=== PATIENT | male | born 1940 | race American Indian/Alaskan Native ===

== ENCOUNTER 2021-10-24 18:21 | Inpatient (IN) | payer MEDICARE ==
[2021-10-24] MEDS ORDERED: SODIUM CHLORIDE 0.9% 500 ML 500 ML IV ONE (19:32)
--- NOTE | 2021-10-24 19:45 | Emergency Department Report ---
ED Syncope HPI - General Chief Complaint: Syncope Stated Complaint: SYNCOPE Time Seen by Provider: 10/24/21 19:26 Source: patient Exam Limitations: other (Dementia) - History of Present Illness Initial Comments: 81-year-old female with early dementia hypertension presents to the hospital after a syncopal episode while walking around with family members in [facility]. Her family members caught the patient during her fall and she did not strike the ground. Patient is visiting the [place] area from [facility]. She is oriented to self, date of , but does not know the year, and initially stated she was in [facility] during initial questioning. Patient cannot r ecall if she came to [place] yesterday or today. She does state for the last 2 weeks she has had poor p.o. intake due to decreased appetite and has been supplementing her diet with boost. She only had 1 boost earlier today but denies other food intake. She states she feels much better now. She denies headache, chest pain, shortness of breath, abdominal pain, nausea, vomiting, melena or hematochezia , dysuria, focal weakness, or focal numbness. - Related Data Allergies/Adverse Reactions: Allergies No Known Allergies Allergy (Unverified 10/24/21 18:28) ED Review of Systems ROS: Stated complaint: SYNCOPE Other details as noted in HPI Comment: All other systems reviewed and negative ED Past Medical Hx - Past Medical History Hx Hypertension: Yes - Social History Smoking Status: Unknown if ever smoked ED Physical Exam - General Limitations: No Limitations - Other Other exam information: General: No acute distress Head: Atraumatic Eyes: normal appearance ENT: Moist mucous membranes Neck: Normal appearance, no midline tenderness Chest: Clear to auscultation bilaterally CV: Regular rate and rhythm Abdomen: Soft, normal bowel sounds, nontender, nondistended, no rebound or guarding Back: Normal inspection Extremity: Normal inspection, full range of motion, no calf tenderness, leg edema, or leg asymmetry Neuro: Alert O x to self but states month is January, unsure of year, and states she is in [facility] no facial asymmetry, speech clear, no gross motor sensory deficit, [id number] function intact, extraocular movements intact Psych: Appropriate behavior Skin: No rash ED Course Vital Signs 10/24/21 10/24/21 10/24/21 18:26 19:30 19:46 Temperature 97.3 F L Pulse Rate 68 58 L Pulse Rate [ Lying] Pulse Rate [ Sitting] Pulse Rate [ Standing] Respiratory 18 14 17 Rate Blood Pressure 137/55 Blood Pressure 116/56 [Left] Blood Pressure [Lying] Blood Pressure [Sitting] Blood Pressure [Standing] O2 Sat by Pulse 100 100 98 Oximetry 10/24/21 10/24/21 10/24/21 20:00 20:15 20:30 Temperature Pulse Rate 63 62 64 Pulse Rate [ Lying] Pulse Rate [ Sitting] Pulse Rate [ Standing] Respiratory 10 L 16 17 Rate Blood Pressure 137/55 140/64 140/64 Blood Pressure [Left] Blood Pressure [Lying] Blood Pressure [Sitting] Blood Pressure [Standing] O2 Sat by Pulse 97 98 98 Oximetry 10/24/21 10/24/21 10/24/21 20:46 21:00 21:16 Temperature Pulse Rate 64 67 64 Pulse Rate [ Lying] Pulse Rate [ Sitting] Pulse Rate [ Standing] Respiratory 17 18 19 Rate Blood Pressure 144/59 144/59 122/47 Blood Pressure [Left] Blood Pressure [Lying] Blood Pressure [Sitting] Blood Pressure [Standing] O2 Sat by Pulse 99 98 98 Oximetry 10/24/21 10/24/21 10/24/21 21:25 21:30 21:46 Temperature Pulse Rate 64 64 Pulse Rate [ 63 Lying] Pulse Rate [ 65 Sitting] Pulse Rate [ 68 Standing] Respiratory 17 13 Rate Blood Pressure 101/44 137/66 Blood Pressure [Left] Blood Pressure 155/59 [Lying] Blood Pressure 148/69 [Sitting] Blood Pressure 101/44 [Standing] O2 Sat by Pulse 99 100 Oximetry 10/24/21 10/24/21 22:00 22:14 Temperature Pulse Rate 68 Pulse Rate [ Lying] Pulse Rate [ Sitting] Pulse Rate [ Standing] Respiratory 9 L Rate Blood Pressure 137/66 Blood Pressure [Left] Blood Pressure [Lying] Blood Pressure [Sitting] Blood Pressure [Standing] O2 Sat by Pulse 98 98 Oximetry ED Medical Decision Making - Lab Data Result diagrams: 10/24/21 20:00 10/24/21 20:00 Lab Results 10/24/21 10/24/21 10/24/21 Range/Units 20:00 20:00 20:00 WBC 7.9 (4.5-11.0) K/mm3 RBC 4.21 (3.65-5.03) M/mm3 Hgb 12.3 (11.8-15.2) gm/dl Hct 37.5 (35.5-45.6) % MCV 89 (84-94) fl MCH 29 (28-32) pg MCHC 33 (32-34) % RDW 15.0 (13.2-15.2) % Plt Count 248 (140-440) K/mm3 Lymph % (Auto) 18.3 (13.4-35.0) % [place]urt % (Auto) 13.4 H (0.0-7.3) % Eos % (Auto) 0.9 (0.0-4.3) % Baso % (Auto) 0.4 (0.0-1.8) % Lymph # (Auto) 1.4 (1.2-5.4) K/mm3 [place] # (Auto) 1.1 H (0.0-0.8) K/mm3 Eos # (Auto) 0.1 (0.0-0.4) K/mm3 Baso # (Auto) 0.0 (0.0-0.1) K/mm3 Seg Neutrophils % 67.0 (40.0-70.0) % Seg Neutrophils # 5.3 (1.8-7.7) K/mm3 PT 14.6 (12.2-14.9) Sec. INR 1.03 (0.87-1.13) APTT 30.2 (24.2-36.6) Sec. Sodium 138 (137-145) mmol/L Potassium 3.9 (3.6-5.0) mmol/L Chloride 100.0 (98-107) mmol/L Carbon Dioxide 25 (22-30) mmol/L Anion Gap 17 mmol/L BUN 25 H (9-20) mg/dL Creatinine 0.9 (0.8-1.3) mg/dL Estimated GFR > 60 ml/min BUN/Creatinine Ratio 28 % Glucose 96 (75-100) mg/dL Calcium 9.3 (8.4-10.2) mg/dL Magnesium 2.10 (1.7-2.3) mg/dL Total Bilirubin 0.30 (0.1-1.2) mg/dL AST 22 (5-40) units/L ALT 13 (7-56) units/L Alkaline Phosphatase 112 (35-129) units/L Total Creatine Kinase 60 (55-170) units/L CK-MB (CK-2) < 1.0 (0.0-4.0) ng/mL CK-MB (CK-2) Rel Index 1.6 (0-4) Troponin T < 0.010 (0.00-0.029) ng/mL Total Protein 7.6 (6.3-8.2) g/dL Albumin 3.6 L (3.9-5) g/dL Albumin/Globulin Ratio 0.9 % Urine Color (Yellow) Urine Turbidity (Clear) Urine pH (5.0-7.0) Ur Specific [place] (1.003-1.030) Urine Protein (Negative) mg/dL Urine Glucose (UA) (Negative) mg/dL Urine Ketones (Negative) mg/dL Urine Blood (Negative) Urine Nitrite (Negative) Ur Reducing Substances Urine Bilirubin (Negative) Urine Ictotest Urine Urobilinogen (<2.0) mg/dL Ur Leukocyte Esterase (Negative) Urine WBC (Auto) (0.0-6.0) /HPF Urine RBC (Auto) (0.0-6.0) /HPF U Epithel Cells (Auto) (0-13.0) /HPF Urine Bacteria (Auto) (Negative) /HPF Urine Mucus /HPF 10/24/21 Range/Units 20:34 WBC (4.5-11.0) K/mm3 RBC (3.65-5.03) M/mm3 Hgb (11.8-15.2) gm/dl Hct (35.5-45.6) % MCV (84-94) fl MCH (28-32) pg MCHC (32-34) % RDW (13.2-15.2) % Plt Count (140-440) K/mm3 Lymph % (Auto) (13.4-35.0) % Burt % (Auto) (0.0-7.3) % Eos % (Auto) (0.0-4.3) % Baso % (Auto) (0.0-1.8) % Lymph # (Auto) (1.2-5.4) K/mm3 [place]urt # (Auto) (0.0-0.8) K/mm3 Eos # (Auto) (0.0-0.4) K/mm3 Baso # (Auto) (0.0-0.1) K/mm3 Seg Neutrophils % (40.0-70.0) % Seg Neutrophils # (1.8-7.7) K/mm3 PT (12.2-14.9) Sec. INR (0.87-1.13) APTT (24.2-36.6) Sec. Sodium (137-145) mmol/L Potassium (3.6-5.0) mmol/L Chloride (98-107) mmol/L Carbon Dioxide (22-30) mmol/L Anion Gap mmol/L BUN (9-20) mg/dL Creatinine (0.8-1.3) mg/dL Estimated GFR ml/min BUN/Creatinine Ratio % Glucose (75-100) mg/dL Calcium (8.4-10.2) mg/dL Magnesium (1.7-2.3) mg/dL Total Bilirubin (0.1-1.2) mg/dL AST (5-40) units/L ALT (7-56) units/L Alkaline Phosphatase (35-129) units/L Total Creatine Kinase (55-170) units/L CK-MB (CK-2) (0.0-4.0) ng/mL CK-MB (CK-2) Rel Index (0-4) Troponin T (0.00-0.029) ng/mL Total Protein (6.3-8.2) g/dL Albumin (3.9-5) g/dL Albumin/Globulin Ratio % Urine Color Yellow (Yellow) Urine Turbidity Slightly cloudy (Clear) Urine pH 6.0 (5.0-7.0) Ur Specific [place] 1.025 (1.003-1.030) Urine Protein 30 mg/dl (Negative) mg/dL Urine Glucose (UA) Negative (Negative) mg/dL Urine Ketones Negative (Negative) mg/dL Urine Blood Small A (Negative) Urine Nitrite Negative (Negative) Ur Reducing Substances Not Reportable Urine Bilirubin Negative (Negative) Urine Ictotest Not Reportable Urine Urobilinogen 2.0 (<2.0) mg/dL Ur Leukocyte Esterase Small (Negative) Urine WBC (Auto) 19.0 H (0.0-6.0) /HPF Urine RBC (Auto) 10.0 (0.0-6.0) /HPF U Epithel Cells (Auto) 4.0 (0-13.0) /HPF Urine Bacteria (Auto) 4+ (Negative) /HPF Urine Mucus Few /HPF - EKG Data -: EKG Interpreted by Me EKG shows normal: sinus rhythm, ST-T waves (No STEMI) Rate: normal - EKG Data When compared to previous EKG there are: previous EKG unavailable - Radiology Data Radiology results: report reviewed CHEST 1 VIEW 10/24/2021 7:47 PM INDICATION / CLINICAL INFORMATION: Syncope. COMPARISON: None available. FINDINGS: SUPPORT DEVICES: None. HEART / MEDIASTINUM: Heart is mildly enlarged. LUNGS / PLEURA: No significant pulmonary or pleural abnormality. No pneumothorax. ADDITIONAL FINDINGS: No significant additional findings. IMPRESSION: 1. Mild cardiomegaly but no acute pulmonary or pleural findings. - Medical Decision Making 81-year-old female with a past medical history of hypertension and mild dementia presents to the hospital after syncopal episode. Patient admits to poor p.o. intake and decreased appetite. Labs reveal increased BUN to creatinine ratio suggesting dehydration. Patient also has a UTI which could be The cause of her decreased p.o. intake. Patient does not have any pain. Nonfocal neuro exam. EKG, troponin, chest x-ray are unremarkable. IV hydration and IV Rocephin initiated in the ED. Cultures pending. Patient will be admitted to the hospitalist service for further treatment Critical Care Time: No Critical care attestation.: If time is entered above; I have spent that time in minutes in the direct care of this critically ill patient, excluding procedure time. ED Disposition Clinical Impression: Syncope, Dehydration, UTI (urinary tract infection), Mild dementia Disposition: ADMITTED INPATIENT Is pt being admited?: Yes Condition: Stable Instructions: Syncope (ED) Time of Disposition: 22:28
--- NOTE | 2021-10-24 20:22 | XRay Report ---
CHEST 1 VIEW 10/24/2021 7:47 PM INDICATION / CLINICAL INFORMATION: Syncope. COMPARISON: None available. FINDINGS: SUPPORT DEVICES: None. HEART / MEDIASTINUM: Heart is mildly enlarged. LUNGS / PLEURA: No significant pulmonary or pleural abnormality. No pneumothorax. ADDITIONAL FINDINGS: No significant additional findings. IMPRESSION: 1. Mild cardiomegaly but no acute pulmonary or pleural findings. Signer Name: Anita Ball MD Signed: 10/24/2021 8:17 PM Workstation Name: [id number]
[2021-10-24 20:26] LABS: Basophils % (Auto) 0.4 % (0.0-1.8); Eosinophils # (Auto) 0.1 K/mm3 (0.0-0.4); Eosinophils % (Auto) 0.9 % (0.0-4.3); Hematocrit 37.5 % (35.5-45.6); Hemoglobin 12.3 gm/dl (11.8-15.2); Lymphocytes # (Auto) 1.4 K/mm3 (1.2-5.4); Lymphocytes % (Auto) 18.3 % (13.4-35.0); Mean Corpuscular HGB Conc 33 % (32-34); Mean Corpuscular Volume 89 fl (84-94); Monocytes # (Auto) 1.1 K/mm3 (0.0-0.8); Monocytes % (Auto) 13.4 % (0.0-7.3); Platelet Count 248 K/mm3 (140-440); Red Blood Count 4.21 M/mm3 (3.65-5.03)
[2021-10-24 20:32] LABS: INR 1.03 (0.87-1.13); Partial Thromboplastin Time 30.2 Sec. (24.2-36.6)
[2021-10-24 20:44] LABS: Alanine Aminotransferase 13 units/L (7-56); Albumin 3.6 g/dL (3.9-5); BUN/Creatinine Ratio 28; Blood Urea Nitrogen 25 mg/dL (9-20); Calcium 9.3 mg/dL (8.4-10.2); Hemolysis Index 3
[2021-10-24 20:47] LABS: Creatine Kinase MB < 1.0 ng/mL (0.0-4.0)
[2021-10-24 21:54] LABS: Bacteria,Urine 4+ /HPF (Negative); Mucus,Urine FEW /HPF
[2021-10-24 22:08] LABS: Bilirubin,Urine Negative (Negative); Color,Urine Yellow (Yellow)
[2021-10-24 22:09] LABS: Blood,Urine Small (Negative)
[2021-10-24] MEDS ORDERED: cefTRIAXone/NS 1 GM/50 ML 1 GM/50 ML BAG IV ONE (22:24)
[2021-10-24] MEDS ORDERED: SODIUM CHLORIDE 0.9% 1000 ML 1,000 ML IV ONE (22:25)
[2021-10-24] MEDS ORDERED: NITROGLYCERIN 0.4 MG TAB SUBL SL PRN (22:39)
[2021-10-24] MEDS ORDERED: traMADol 50 MG TAB PO PRN (22:39)
[2021-10-24] MEDS ORDERED: ACETAMINOPHEN 325 MG TAB PO PRN (22:39)
[2021-10-24] MEDS ORDERED: MORPHINE 4 MG/1 ML INJ IV PRN (22:39)
--- NOTE | 2021-10-24 22:46 | History and Physical Report ---
History of Present Illness Date of examination: 10/24/21 Date of admission: 10/24/21 Chief complaint: Syncope History of present illness: 81-year-old female with early dementia hypertension presents to the hospital after a syncopal episode while walking around with family members in [facility]. Her family members caught the patient during her fall and she did not strike the ground. Patient is visiting the [place] area from [facility]. She is oriented to self, date of , but does not know the year, and initially stated she was in [facility] during initial questioning. Patient cannot recall if she came to [place] yesterday or today. She does state for the last 2 weeks she has had poor p.o. intake due to decreased appetite and has been supplementing her diet with boost. She only had 1 boost earlier today but denies other food intake. She states she feels much better now. She denies headache, chest pain, shortness of breath, abdominal pain, nausea, vomiting, melena or hematochezia , dysuria, focal weakness, or focal numbness. In the emergency room patient's initial troponin is negative troponin is 0.010, chest x-ray shows no acute finding, but patient is found to have a UTI Past History Past Medical History: hypertension Past Surgical History: No surgical history Social history: no significant social history Family history: hypertension Medications and Allergies Allergies Allergy/AdvReac Type Severity Reaction Status Date / Time No Known Allergies Allergy Unverified 10/24/21 18:28 Active Meds: Active Medications Ceftriaxone Sodium (Rocephin/Ns 1 Gm/50 Ml) 1 gm in 50 mls @ 100 mls/hr IV ONCE ONE; Protocol Stop: 10/24/21 22:53 Sodium Chloride (Nacl 0.9% 1000 Ml) 1,000 mls @ 250 mls/hr IV BOLUS ONE Stop: 10/25/21 02:24 Review of Systems All systems: negative Constitutional: weakness, other Cardiovascular: syncope, lightheadedness Exam - Constitutional Vitals: Temp Pulse Resp BP Pulse Ox 97.3 F L 66 16 136/59 100 10/24/21 18:26 10/24/21 22:30 10/24/21 22:30 10/24/21 22:30 10/24/21 22:30 General appearance: Present: no acute distress, well-nourished - EENT Eyes: Present: PERRL ENT: hearing intact, clear oral mucosa - Neck Neck: Present: supple, normal ROM - Respiratory Respiratory effort: normal Respiratory: bilateral: CTA - Cardiovascular Heart Sounds: Present: S1 & S2. Absent: rub, click - Extremities Extremities: pulses symmetrical, No edema Peripheral Pulses: within normal limits - Abdominal General gastrointestinal: Present: soft, non-tender, non-distended, normal bowel sounds Male genitourinary: Present: normal - Integumentary Integumentary: Present: clear, warm, dry - Musculoskeletal Musculoskeletal: gait normal, strength equal bilaterally - Psychiatric Psychiatric: appropriate mood/affect, intact judgment & insight - Neurologic Neurologic: CNII-XII intact, moves all extremities HEART Score - HEART Score Troponin: Troponin T < 0.010 ng/mL (0.00-0.029) 10/24/21 20:00 Results - Labs CBC & Chem 7: 10/24/21 20:00 10/24/21 20:00 Labs: Laboratory Last Values WBC 7.9 K/mm3 (4.5-11.0) 10/24/21 20:00 RBC 4.21 M/mm3 (3.65-5.03) 10/24/21 20:00 Hgb 12.3 gm/dl (11.8-15.2) 10/24/21 20:00 Hct 37.5 % (35.5-45.6) 10/24/21 20:00 MCV 89 fl (84-94) 10/24/21 20:00 MCH 29 pg (28-32) 10/24/21 20:00 MCHC 33 % (32-34) 10/24/21 20:00 RDW 15.0 % (13.2-15.2) 10/24/21 20:00 Plt Count 248 K/mm3 (140-440) 10/24/21 20:00 Lymph % (Auto) 18.3 % (13.4-35.0) 10/24/21 20:00 [place] % (Auto) 13.4 % (0.0-7.3) H 10/24/21 20:00 Eos % (Auto) 0.9 % (0.0-4.3) 10/24/21 20:00 Baso % (Auto) 0.4 % (0.0-1.8) 10/24/21 20:00 Lymph # (Auto) 1.4 K/mm3 (1.2-5.4) 10/24/21 20:00 [place] # (Auto) 1.1 K/mm3 (0.0-0.8) H 10/24/21 20:00 Eos # (Auto) 0.1 K/mm3 (0.0-0.4) 10/24/21 20:00 Baso # (Auto) 0.0 K/mm3 (0.0-0.1) 10/24/21 20:00 Seg Neutrophils % 67.0 % (40.0-70.0) 10/24/21 20:00 Seg Neutrophils # 5.3 K/mm3 (1.8-7.7) 10/24/21 20:00 PT 14.6 Sec. (12.2-14.9) 10/24/21 20:00 INR 1.03 (0.87-1.13) 10/24/21 20:00 APTT 30.2 Sec. (24.2-36.6) 10/24/21 20:00 Sodium 138 mmol/L (137-145) 10/24/21 20:00 Potassium 3.9 mmol/L (3.6-5.0) 10/24/21 20:00 Chloride 100.0 mmol/L (98-107) 10/24/21 20:00 Carbon Dioxide 25 mmol/L (22-30) 10/24/21 20:00 Anion Gap 17 mmol/L 10/24/21 20:00 BUN 25 mg/dL (9-20) H 10/24/21 20:00 Creatinine 0.9 mg/dL (0.8-1.3) 10/24/21 20:00 Estimated GFR > 60 ml/min 10/24/21 20:00 BUN/Creatinine Ratio 28 % 10/24/21 20:00 Glucose 96 mg/dL (75-100) 10/24/21 20:00 Calcium 9.3 mg/dL (8.4-10.2) 10/24/21 20:00 Magnesium 2.10 mg/dL (1.7-2.3) 10/24/21 20:00 Total Bilirubin 0.30 mg/dL (0.1-1.2) 10/24/21 20:00 AST 22 units/L (5-40) 10/24/21 20:00 ALT 13 units/L (7-56) 10/24/21 20:00 Alkaline Phosphatase 112 units/L (35-129) 10/24/21 20:00 Total Creatine Kinase 60 units/L (55-170) 10/24/21 20:00 CK-MB (CK-2) < 1.0 ng/mL (0.0-4.0) 10/24/21 20: CK-MB (CK-2) Rel Index 1.6 (0-4) 10/24/21 20:00 Troponin T < 0.010 ng/mL (0.00-0.029) 10/24/21 20:00 Total Protein 7.6 g/dL (6.3-8.2) 10/24/21 20:00 Albumin 3.6 g/dL (3.9-5) L 10/24/21 20: Albumin/Globulin Ratio 0.9 % 10/24/21 20: Urine Color Yellow (Yellow) 10/24/21 20:34 Urine Turbidity Slightly cloudy (Clear) 10/24/21 20:34 Urine pH 6.0 (5.0-7.0) 10/24/21 20:34 Ur Specific [place] 1.025 (1.003-1.030) 10/24/21:34 Urine Protein 30 mg/dl mg/dL (Negative) 10/24/21 20:34 Urine Glucose (UA) Negative mg/dL (Negative) 10/24/21 20:34 Urine Ketones Negative mg/dL (Negative) 10/24/21: Urine Blood Small (Negative) A 10/24/21 20:34 Urine Nitrite Negative (Negative) 10/24/21 20:34 Ur Reducing Substances Not Reportable 10/24/21 20: Urine Bilirubin Negative (Negative) 10/24/21: Urine Ictotest Not Reportable 10/24/21: Urine Urobilinogen 2.0 mg/dL (<2.0) 10/24/21 20:34 Ur Leukocyte Esterase Small (Negative) 10/24/21 20:34 Urine WBC (Auto) 19.0 /HPF (0.0-6.0) H 10/24/21:34 Urine RBC (Auto) 10.0 /HPF (0.0-6.0) 10/24/21 20:34 U Epithel Cells (Auto) 4.0 /HPF (0-13.0) 10/24/21 20:34 Urine Bacteria (Auto) 4+ /HPF (Negative) 10/24/21 20:34 Urine Mucus Few /HPF 10/24/21 20:34 - Imaging and Cardiology Chest x-ray: report reviewed Assessment and Plan VTE prophylaxis?: Mechanical Plan of care discussed with patient/family: Yes - Patient Problems (1) Syncope Current Visit: Yes Status: Acute Plan to address problem: Admit the patient to the medical telemetry. Aspirin 325 mg p.o. daily. Lipitor 40 mg p.o. daily. Nitroglycerin as needed. Half-normal saline at the rate of 100 cc/h. Serial cardiac enzymes. Echocardiogram. Consult cardiology if needed (2) Hypertension Current Visit: Yes Status: Acute Plan to address problem: Hydralazine 10 mg IV every 6 hours as needed. We continue the home medication (3) Dehydration Current Visit: Yes Status: Acute Plan to address problem: Half-normal saline at the rate of 100 cc/h. We dehydrate the patient slowly. Recheck BMP in the morning (4) Mild dementia Current Visit: Yes Status: Acute Plan to address problem: Is stable. We continue the home medication (5) UTI (urinary tract infection) Current Visit: Yes Status: Acute Plan to address problem: Rocephin 2 g IV daily. We sent the blood and urine for culture (6) DVT prophylaxis Current Visit: Yes Status: Acute Plan to address problem: SCD for DVT prophylaxis. Protonix 40 mg p.o. daily for GI prophylaxis. Patient is a full code
[2021-10-24] MEDS ORDERED: cefTRIAXone/NS 2 GM/100 ML 2 GM/100 ML BAG IV SCH (23:00)
[2021-10-24] MEDS ORDERED: SODIUM CHLORIDE 0.45% 1000 ML 1,000 ML IV SCH (23:00)
[2021-10-24 23:26] LABS: Basophils % (Auto) 0.2 % (0.0-1.8); Eosinophils # (Auto) 0.1 K/mm3 (0.0-0.4); Eosinophils % (Auto) 0.7 % (0.0-4.3); Hematocrit 36.2 % (35.5-45.6); Hemoglobin 11.9 gm/dl (11.8-15.2); Lymphocytes # (Auto) 1.9 K/mm3 (1.2-5.4); Lymphocytes % (Auto) 23.9 % (13.4-35.0); Mean Corpuscular HGB Conc 33 % (32-34); Mean Corpuscular Volume 89 fl (84-94); Monocytes % (Auto) 12.1 % (0.0-7.3); Platelet Count 243 K/mm3 (140-440); Red Blood Count 4.06 M/mm3 (3.65-5.03); Red Cell Distribution Width 15.3 % (13.2-15.2)
[2021-10-24 23:38] LABS: Blood Urea Nitrogen 21 mg/dL (9-20); Hemolysis Index 3
[2021-10-24 23:52] LABS: BUN/Creatinine Ratio 30
[2021-10-25 05:00] VITALS: BP 138/54
[2021-10-25 09:40] LABS: Mucus,Urine FEW /HPF
[2021-10-25] MEDS ORDERED: ASPIRIN EC 325 MG TAB PO SCH (10:00)
[2021-10-25] MEDS ORDERED: PANTOPRAZOLE 40 MG TAB PO SCH (10:00)
[2021-10-25] MEDS ORDERED: cefTRIAXone/NS 2 GM/100 ML 2 GM/100 ML BAG IV SCH (10:00)
[2021-10-25 10:06] LABS: Bilirubin,Urine Negative (Negative); Blood,Urine 2+ (Negative); Color,Urine Straw (Yellow); PH,Urine 7.5 (5.0-7.0)
--- NOTE | 2021-10-25 10:10 | Discharge Summary ---
Providers - Providers Date of Admission: 10/24/21 22:40 Attending physician: BHAVNA STEVE MD 10/24/21 Consult to Cardiac Rehabilitation [CONS] Routine Reason For Exam: Phase I Primary care physician: FLORESITA SANDOVAL Hospitalization Reason for admission: syncope Condition: Stable Hospital course: 81-year-old female with early dementia hypertension presents to the hospital after a syncopal episode while walking around with family members in [facility]. Her family members caught the patient during her fall and she did not strike the ground. Patient is visiting the [place] area from [facility]. She is oriented to self, date of , but does not know the year, and initially stated she was in [facility] during initial questioning. Patient cannot recall if she came to [place] yesterday or today. She does state for the last 2 weeks she has had poor p.o. intake due to decreased appetite and has been supplementing her diet with boost. She only had 1 boost earlier today but denies other food intake. She states she feels much better now. She denies headache, chest pain, shortness of breath, abdominal pain, nausea, vomiting, melena or hematochezia , dysuria, focal weakness, or focal numbness. In the emergency room patient's initial troponin is negative troponin is 0.010, chest x-ray shows no acute finding, but patient is found to have a UTI 10/25: Patient seen and examined, some owning noted. Spoke to family, they are aware that patients has been experiencing forgetfulness for some time but has not been worked up. Will get a echo, CT head and if negative will discharge. She is encouraged to increase PO intake, also will give antibiotics for the noted UTI (1) Autonomic Disequilibrium Current Visit: Yes Status: Acute Plan to address problem: Admit the patient to the medical telemetry. Aspirin 325 mg p.o. daily. Lipitor 40 mg p.o. daily. Nitroglycerin as needed. Half-normal saline at the rate of 100 cc/h. Serial cardiac enzymes. Echocardiogram. Consult cardiology if needed (2) Hypertension Current Visit: Yes Status: Acute Plan to address problem: Hydralazine 10 mg IV every 6 hours as needed. We continue the home medication (3) Dehydration Current Visit: Yes Status: Acute Plan to address problem: Half-normal saline at the rate of 100 cc/h. We dehydrate the patient slowly. Recheck BMP in the morning (4) Mild dementia Current Visit: Yes Status: Acute Plan to address problem: Is stable. We continue the home medication (5) Acute Metabolic Encephalopathy (6) Acute cystitis Current Visit: Yes Status: Acute Plan to address problem: Rocephin 2 g IV daily. We sent the blood and urine for culture (7) Possible New onset dementia Disposition: 01 HOME / SELF CARE / HOMELESS Final Discharge Diagnosis (Prints w/discharge instructions): Autonomic Disequibirum. Acute cystitis. Acute Metabolic Encephalopathy Time spent for discharge: 35 mins Core Measure Documentation - Palliative Care Palliative Care/ Comfort Measures: Not Applicable - Core Measures Any of the following diagnoses?: none Exam - Physical Exam Narrative exam: General appearance: Present: no acute distress, well-nourished - EENT Eyes: Present: PERRL ENT: hearing intact, clear oral mucosa - Neck Neck: Present: supple, normal ROM - Respiratory Respiratory effort: normal Respiratory: bilateral: CTA - Cardiovascular Heart Sounds: Present: S1 & S2. Absent: rub, click - Extremities Extremities: pulses symmetrical, No edema Peripheral Pulses: within normal limits - Abdominal General gastrointestinal: Present: soft, non-tender, non-distended, normal bowel sounds Male genitourinary: Present: normal - Integumentary Integumentary: Present: clear, warm, dry - Musculoskeletal Musculoskeletal: gait normal, strength equal bilaterally - Psychiatric Psychiatric: appropriate mood/affect, intact judgment & insight - Neurologic Neurologic: CNII-XII intact, moves all extremities, intermittent forgetfulness - Constitutional Vitals: Temp Pulse Resp BP Pulse Ox 97.8 F 58 L 16 138/54 98 10/25/21 03:56 10/25/21 03:56 10/25/21 03:56 10/25/21 03:56 10/25/21 03:56 Plan Activity: advance as tolerated, fall precautions Diet: low fat Special Instructions: record daily weights, record daily BP diary Plan of Treatment: STRONGLY ENCOURAGE OUTPATIENT NEUROLOGY AND CARDIOLOGY WORK UP Follow up with: FLORESITA SANDOVAL MD [Primary Care Provider] - 3-5 Days Prescriptions: AtorvaSTATin [Lipitor] 40 mg PO QHS #30 tablet Ciprofloxacin HCl 500 mg PO BID #6 tab Pantoprazole [Protonix TAB] 40 mg PO QDAY #30 tablet Aspirin [[place] Aspirin EC] 81 mg PO DAILY #30 tab
--- NOTE | 2021-10-25 10:42 | Electrocardiograph Report ---
[facility] Test Date: 2021-10-24 Test Time: 19:40:01 Pat Name: KELSEY BRAUN Department: Room: A367 1 Gender: M Lathe Scalper Operator: NABIL : 1940 Requested By: OLIVE BURCIAGA Order Number: [id number] Reading MD: Satish Reddy Measurements Intervals [place] Rate: 60 P: 11 DC: 175 QRS: 58 QRSD: 79 T: 69 QT: 471 QTc: 470 Interpretive Statements Sinus rhythm No previous ECG available for comparison Electronically Signed On 10-25-2021 10:42:19 EDT by Satish Reddy
--- NOTE | 2021-10-25 10:43 | Electrocardiograph Report ---
[facility] Test Date: 2021-10-25 Test Time: 07:29:29 Pat Name: KELSEY BRAUN Department: Room: A367 1 Gender: M Manager Access: RODRIGUEZ : 1940 Requested By: CLAUDY CHONG Order Number: [id number] Reading MD: Satish Reddy Measurements Intervals [place] Rate: 59 P: 51 IA: 185 QRS: 43 QRSD: 92 T: 53 QT: 476 QTc: 472 Interpretive Statements Sinus bradycardia Atrial premature complex Consider left ventricular hypertrophy Compared to ECG 10/24/2021 19:40:01 Atrial premature complex(es) now present Sinus rhythm no longer present Electronically Signed On 10-25-2021 10:43:25 EDT by Satish Reddy
--- NOTE | 2021-10-25 11:33 | Cat Scan Report ---
CT BRAIN: 10/25/2021 INDICATION / CLINICAL INFORMATION: syncope. COMPARISON: None available. FINDINGS: BRAIN/INTRACRANIAL STRUCTURES: Unenhanced CT images of the brain demonstrate no evidence of acute abn ormality. Ventricles and sulci are prominent in size, consistent with age-related atrophic change. There is no evidence of acute ischemic injury, hemorrhage, or mass. There are no abnormal extra-axial fluid collections. EXTRACRANIAL STRUCTURES: Unremarkable. IMPRESSION: No acute abnormality. All CT scans at this location are performed using dose reduction to ALARA by means of automated expos ure control. Signer Name: Jerod Shelton MD Signed: 10/25/2021 11:29 AM Workstation Name: [id number]
--- NOTE | 2021-10-26 09:47 | Electrocardiograph Report ---
[facility] Test Date: 2021-10-25 Test Time: 11:26:38 Pat Name: KELSEY BRAUN Department: Room: A367 1 Gender: M Director Of [employer]: RODRIGUEZ : 1940 Requested By: CLAUDY CHONG Order Number: [id number] Reading MD: Janes Kay Measurements Intervals [place] Rate: 62 P: 49 TX: 184 QRS: 55 QRSD: 87 T: 72 QT: 467 QTc: 475 Interpretive Statements Sinus rhythm Ventricular premature complex Compared to ECG 10/25/2021 07:29:29 Ventricular premature complex(es) now present Sinus bradycardia no longer present Atrial premature complex(es) no longer present Electronically Signed On 10-26-2021 9:47:38 EDT by Janes Kay
== END 2021-10-25 17:03 | disposition home or self-care (01) | DRG 73 ==
LOC: ED 18:21 → 3A 22:40
PROVIDERS: ADMIT Hospitalist; ATTEND Internal Medicine
DX: G90.8 Other disorders of autonomic nervous system (principal); G93.41 Metabolic encephalopathy; N30.00 Acute cystitis without hematuria; F03.90 Unspecified dementia, unspecified severity, without behavioral disturbance, psychotic disturbance, mood disturbance, and anxiety; E86.0 Dehydration; I10 Essential (primary) hypertension; W18.39XA Other fall on same level, initial encounter; Y93.89 Activity, other specified; Y92.89 Other specified places as the place of occurrence of the external cause; Y99.8 Other external cause status; Z82.49 Family history of ischemic heart disease and other diseases of the circulatory system
CPT/HCPCS: 36415; 70450; 71045; 80048; 80053; 81001; 82550; 82553; 83735; 84484; 85025; 85610; 85730; 87076; 87086; 87186; 93005; G0378; J3490; J0696; J7030; J7040